=== PATIENT | female | born 1985 | race Hispanic/Latino ===

== ENCOUNTER 2019-09-21 19:48 | Emergency (ER) | payer OTHER ==
[2019-09-21 20:29] LABS: BASOPHILS % (AUTO) 0.2 % (0.0-5.0); EOSINOPHILS % (AUTO) 0.7 % (0.0-8.0); HEMATOCRIT 40.7 % (36-48); LYMPHOCYTES % (AUTO) 25.8 % (21.0-51.0); MEAN CORPUSCULAR HEMOGLOBIN 29.9 pg (27.0-33.0); MEAN CORPUSCULAR HGB CONC 33.2 g/dL (32.0-36.0); NEUTROPHILS % (AUTO) 68.1 % (40.0-77.0); PLATELET COUNT (AUTO) 270 K/uL (130-400); RED BLOOD CELL COUNT(AUTO) 4.52 MIL/uL (4.00-5.50); RED CELL DISTRIBUTION WIDTH 11.9 % (11.0-15.5); WHITE BLOOD COUNT (AUTO) 9.2 K/uL (4.8-10.8)
[2019-09-21 20:30] LABS: APPEARANCE,URINE Clear (CLEAR); BILIRUBIN,URINE Negative (NEGATIVE); COLOR,URINE Yellow (YELLOW); GLUCOSE, URINE (UA) Negative (NEGATIVE); KETONES,URINE 15 mg/dL (NEGATIVE); LEUKOCYTE ESTERASE ,URINE Negative (NEGATIVE); NITRATE,URINE Negative (NEGATIVE); OCCULT BLOOD,URINE Negative (NEGATIVE); PROTEIN,URINE Negative (NEGATIVE); UROBILINOGEN,URINE 0.2 mg/dL (0.2-1.0)
[2019-09-21 20:32] LABS: HCG,QUAL RESULT NEGATIVE (NEGATIVE)
[2019-09-21] MEDS ORDERED: ONDANSETRON ODT 4 MG TAB ONE (20:48)
[2019-09-21] MEDS ORDERED: ACETAMINOPHEN EXTRA STRENGTH 500 MG TABLET ONE (20:48)
[2019-09-21 21:05] LABS: CREATININE 0.6 mg/dL (0.5-1.5); POTASSIUM 3.3 mmol/L (3.5-5.1)
[2019-09-21 21:11] LABS: BILIRUBIN,TOTAL 0.8 mg/dL (0.2-1.0); TOTAL PROTEIN, SERUM 7.9 g/dL (6.0-8.3)
[2019-09-21] MEDS ORDERED: IBUPROFEN 800 MG TAB ONE (21:23)
== END 2019-09-21 21:53 | disposition home or self-care (01) ==
LOC: EDH 19:48
DX: M54.5 Low back pain (principal); R11.0 Nausea; Z98.890 Other specified postprocedural states
CPT/HCPCS: 36415; 80053; 81003; 81025; 85025

== ENCOUNTER 2020-06-22 10:56 | Emergency (ER) | payer OTHER ==
[2020-06-22] MEDS ORDERED: ACETAMINOPHEN EXTRA STRENGTH 500 MG TABLET ONE (15:10)
[2020-06-22] MEDS ORDERED: DEXAMETHASONE SOD PHOSPHATE 10MG/ML 1ML VIAL ONE (15:10)
[2020-06-22 16:11] LABS: RAPID GROUP A STREP NEGATIVE (NEGATIVE)
== END 2020-06-22 16:52 | disposition home or self-care (01) ==
LOC: EDH 10:56
DX: U07.1 COVID-19 (principal)
CPT/HCPCS: 87426; 87804 ×2; 87880; 96372; 99283; J1100

== ENCOUNTER 2020-09-25 03:30 | Inpatient (IN) | payer OTHER ==
[~2020-09-25] VITALS: Ht 160 cm; Wt 80.7 kg
[2020-09-25] MEDS ORDERED: ACETAMINOPHEN 325 MG TAB ONE (03:57)
[2020-09-25] MEDS ORDERED: ONDANSETRON HCL 4 MG/2 ML VIAL ONE ×2 (03:57→07:45)
[2020-09-25] MEDS ORDERED: METOCLOPRAMIDE 10 MG/2 ML VIAL ONE (03:57)
[2020-09-25] MEDS ORDERED: PANTOPRAZOLE 40 MG/VIAL ONE (03:57)
[2020-09-25] MEDS ORDERED: FAMOTIDINE/PF 20 MG/2 ML VIAL IV ONE (03:58)
[2020-09-25 03:59] LABS: BASOPHILS % (AUTO) 0.4 % (0.0-5.0); EOSINOPHILS % (AUTO) 0.6 % (0.0-8.0); HEMATOCRIT 42.2 % (36-48); LYMPHOCYTES % (AUTO) 21.7 % (21.0-51.0); MEAN CORPUSCULAR HEMOGLOBIN 29.7 pg (27.0-33.0); MEAN CORPUSCULAR HGB CONC 33.2 g/dL (32.0-36.0); MEAN CORPUSCULAR VOLUME 89.6 fL (79-99); MONOCYTES % (AUTO) 5.4 % (3.0-13.0); NEUTROPHILS % (AUTO) 71.6 % (40.0-77.0); PLATELET COUNT (AUTO) 229 K/uL (130-400); RED BLOOD CELL COUNT(AUTO) 4.71 MIL/uL (4.00-5.50); RED CELL DISTRIBUTION WIDTH 11.9 % (11.0-15.5); WHITE BLOOD COUNT (AUTO) 7.8 K/uL (4.8-10.8)
[2020-09-25 04:08] LABS: CREATININE 0.7 mg/dL (0.5-1.5); POTASSIUM 3.3 mmol/L (3.5-5.1)
[2020-09-25 04:11] LABS: INR 0.99 (0.85-1.15); PROTHROMBIN TIME 10.8 SEC (9.6-11.6)
[2020-09-25 04:12] LABS: ALBUMIN 4.1 g/dL (3.5-5.0); BILIRUBIN,TOTAL 1.1 mg/dL (0.2-1.0); TOTAL PROTEIN, SERUM 7.7 g/dL (6.0-8.3)
[2020-09-25 04:24] LABS: APPEARANCE,URINE Clear (CLEAR); BILIRUBIN,URINE Negative (NEGATIVE); COLOR,URINE Yellow (YELLOW); GLUCOSE, URINE (UA) Negative (NEGATIVE); KETONES,URINE Negative (NEGATIVE); LEUKOCYTE ESTERASE ,URINE Negative (NEGATIVE); NITRATE,URINE Negative (NEGATIVE); OCCULT BLOOD,URINE Trace (NEGATIVE); PROTEIN,URINE Negative (NEGATIVE); UROBILINOGEN,URINE 0.2 mg/dL (0.2-1.0)
[2020-09-25 04:28] LABS: HCG,QUAL RESULT NEGATIVE (NEGATIVE)
[2020-09-25 04:38] LABS: WBC,URINE 0-1 /HPF (0-1)
[2020-09-25 04:39] LABS: BACTERIA,URINE None Seen /HPF (None Seen)
[2020-09-25] MEDS ORDERED: ZOSYN 3.375GM+NS 50ML 50 ML IV ONE ×2 (05:55→15:31)
[2020-09-25] MEDS: ZOSYN 3.375GM+NS 50ML 50 ML IV SCH ×3 (06:45→22:21)
[2020-09-25] MEDS ORDERED: MORPHINE SULFATE 4 MG/1ML SYG IV PRN (06:45)
[2020-09-25] MEDS ORDERED: MORPHINE SULFATE 2 MG/ML 1ML SYG IVP PRN (06:45)
[2020-09-25] MEDS: SODIUM CHLORIDE 0.9% 1000ML 1,000 ML IV SCH ×3 (06:45→22:14)
[2020-09-25] MEDS ORDERED: POTASSIUM CHLORIDE 20MEQ/100ML 100 ML IV PRN (06:45)
[2020-09-25] MEDS ORDERED: LIDOCAINE HCL-MPF 1% 2ML VIAL IV PRN (06:45)
[2020-09-25] MEDS ORDERED: ACETAMINOPHEN 325 MG TAB PO PRN (06:45)
[2020-09-25] MEDS ORDERED: ONDANSETRON HCL 4 MG/2 ML VIAL IVP PRN (06:45)
[2020-09-25] MEDS ORDERED: MORPHINE SULFATE 2 MG/ML 1ML SYG ONE (07:44)
[2020-09-25] MEDS: FAMOTIDINE/PF 20 MG/2 ML VIAL IV SCH ×2 (09:00→22:14)
[2020-09-25] MEDS ORDERED: FAMOTIDINE 20MG TAB 20 MG TAB ONE (09:07)
[2020-09-25] MEDS ORDERED: DIATR MEGLU/DIATRIZOATE SODIUM 30 ML BOTTLE ONE (09:46)
[2020-09-25] MEDS ORDERED: IOHEXOL 350 MG/ML 100ML INFUS..BTL IV ONE (11:21)
[2020-09-25] MEDS ORDERED: POTASSIUM CHLORIDE 20MEQ/100ML 100 ML IV ONE (11:47)
[2020-09-25] MEDS ORDERED: LIDOCAINE HCL-MPF 1% 2ML VIAL ONE (11:48)
[2020-09-25] MEDS ORDERED: SODIUM CHLORIDE 0.9% 1000ML 1,000 ML IV ONE (17:36)
[2020-09-25 21:10] VITALS: BP 112/70
[2020-09-26] VITALS (18 sets, daily range): BP systolic 90–120; BP diastolic 47–75
[2020-09-26 05:10] LABS: BASOPHILS % (AUTO) 0.3 % (0.0-5.0); EOSINOPHILS % (AUTO) 1.9 % (0.0-8.0); HEMATOCRIT 37.1 % (36-48); LYMPHOCYTES % (AUTO) 34.6 % (21.0-51.0); MEAN CORPUSCULAR HEMOGLOBIN 30.2 pg (27.0-33.0); MEAN CORPUSCULAR HGB CONC 33.4 g/dL (32.0-36.0); MEAN CORPUSCULAR VOLUME 90.3 fL (79-99); MONOCYTES % (AUTO) 8.5 % (3.0-13.0); NEUTROPHILS % (AUTO) 54.4 % (40.0-77.0); PLATELET COUNT (AUTO) 201 K/uL (130-400); RED BLOOD CELL COUNT(AUTO) 4.11 MIL/uL (4.00-5.50); WHITE BLOOD COUNT (AUTO) 5.9 K/uL (4.8-10.8)
[2020-09-26 05:23] LABS: ALBUMIN 3.3 g/dL (3.5-5.0); BILIRUBIN,TOTAL 1.2 mg/dL (0.2-1.0); CREATININE 0.7 mg/dL (0.5-1.5); POTASSIUM 3.7 mmol/L (3.5-5.1); TOTAL PROTEIN, SERUM 6.3 g/dL (6.0-8.3)
[2020-09-26] MEDS: ZOSYN 3.375GM+NS 50ML 50 ML IV SCH (06:52)
[2020-09-26] MEDS: SODIUM CHLORIDE 0.9% 1000ML 1,000 ML IV SCH (06:52)
[2020-09-26] MEDS ORDERED: PROPOFOL 10 MG/ML 20ML VIAL IV ONE (08:10)
[2020-09-26] MEDS ORDERED: LIDOCAINE HCL-MPF 2% 5ML VIAL ONE (08:12)
[2020-09-26] MEDS ORDERED: PANTOPRAZOLE SODIUM 40 MG TABLET.DR PO SCH (09:15)
[2020-09-26] MEDS ORDERED: LEVO500T89 PO (11:14)
== END 2020-09-26 13:00 | disposition home or self-care (01) | DRG 392 ==
LOC: EDH 03:30 → EDHIP 06:34 → OBSVTOIN 06:34 → 3BH 20:35
PROVIDERS: ADMIT Hospitalist; ATTEND Hospitalist
PROC: 0DB68ZX Excision of Stomach, Via Natural or Artificial Opening Endoscopic, Diagnostic (ICD-10-PCS; principal; 2020-09-26)
PROC: 0DB78ZX Excision of Stomach, Pylorus, Via Natural or Artificial Opening Endoscopic, Diagnostic (ICD-10-PCS; 2020-09-26)
DX: A09 Infectious gastroenteritis and colitis, unspecified (principal); K62.5 Hemorrhage of anus and rectum; E87.6 Hypokalemia; K83.8 Other specified diseases of biliary tract; K44.9 Diaphragmatic hernia without obstruction or gangrene; K31.89 Other diseases of stomach and duodenum; Z20.822 Contact with and (suspected) exposure to COVID-19
CPT/HCPCS: 36415; 43239; 74178; 76705; 80053; 81001; 81025; 83605; 83690; 84145; 84484; 85025; 85610; 85730; 87040; 87426; 87804; 93005; C9113; G0378; J2405; J2543; J2704; J2765; J3480; J3490; J7030; Q9963; Q9967; U0003

== ENCOUNTER 2020-10-13 07:56 | Day surgery (SDC) | payer OTHER ==
[~2020-10-13] VITALS: Ht 160 cm; Wt 81.2 kg
[~2020-10-13 07:56] MED LIST: LEVO500T89 PO; SODIUM CHLORIDE 0.9% 1000ML 1,000 ML IV ONE
[2020-10-13 09:07] VITALS: BP 109/74
[2020-10-13] MEDS ORDERED: PROPOFOL 10 MG/ML 20ML VIAL IV ONE (09:30)
[2020-10-13] MEDS ORDERED: LIDOCAINE HCL 1% 20 ML VIAL ONE (09:30)
[2020-10-13 09:52] VITALS: BP 94/59
[2020-10-13 09:57] VITALS: BP 98/62
[2020-10-13 10:02] VITALS: BP 95/61
== END 2020-10-13 10:20 | disposition home or self-care (01) ==
LOC: DAH 07:56 → ENDO 07:56
PROVIDERS: ATTEND Internal Medicine Gastroenterology
DX: K92.1 Melena (principal); K62.89 Other specified diseases of anus and rectum; R93.3 Abnormal findings on diagnostic imaging of other parts of digestive tract; K62.1 Rectal polyp; Q43.8 Other specified congenital malformations of intestine; Z20.828 Contact with and (suspected) exposure to other viral communicable diseases; Z79.899 Other long term (current) drug therapy
CPT/HCPCS: 45380; 81025; A4215; A4221; A4222; A4223; A4606; A4620; A4663; C9803; J2704; J7030; U0003

== ENCOUNTER 2021-06-22 23:50 | Inpatient (IN) | payer OTHER, MEDICAID ==
[~2021-06-22] VITALS: Ht 160 cm; Wt 89.8 kg
[2021-06-23 00:30] LABS: APPEARANCE,URINE Clear (CLEAR); BILIRUBIN,URINE Negative (NEGATIVE); COLOR,URINE Yellow (YELLOW); GLUCOSE, URINE (UA) >=1000 mg/dL (NEGATIVE); KETONES,URINE 15 mg/dL (NEGATIVE); LEUKOCYTE ESTERASE ,URINE Trace (NEGATIVE); NITRATE,URINE Negative (NEGATIVE); OCCULT BLOOD,URINE Negative (NEGATIVE); PROTEIN,URINE Trace mg/dL (NEGATIVE)
[2021-06-23 00:43] LABS: BACTERIA,URINE Rare /HPF (None Seen); RBC,URINE None Seen /HPF (0-1); SQUAMOUS EPITHELIAL CELL,UR Few /HPF (0-2)
[2021-06-23 00:44] LABS: CALCIUM OXALATE CRYSTALS,UR Moderate /LPF (None Seen)
[2021-06-23] MEDS ORDERED: LACTATED RINGERS 1000ML 1,000 ML IV SCH (01:30)
[2021-06-23 01:43] VITALS: BP 118/71
[2021-06-23] MEDS ORDERED: PREN1TAB80 PO (01:46)
[2021-06-23] MEDS ORDERED: EPHEDRINE SULFATE 50 MG/ML AMPULE IVP PRN (08:00)
[2021-06-23] MEDS ORDERED: LACTATED RINGERS 500 ML 500 ML IV PRN (08:00)
[2021-06-23] MEDS ORDERED: NALOXONE HCL 0.4 MG/1 ML ML IV PRN (08:00)
[2021-06-23] MEDS ORDERED: AMPICILLIN 1GM+NS 50ML 50 ML IV SCH (08:00)
[2021-06-23] MEDS ORDERED: LACTATED RINGERS 1000ML 1,000 ML IV PRN (08:00)
[2021-06-23] MEDS ORDERED: OXYTOCIN-LR 20 UNITS/1000 ML 1,000 ML IV SCH ×2 (08:00)
[2021-06-23] MEDS ORDERED: AMPICILLIN 2GM+NS 100ML 100 ML IV SCH (08:00)
[2021-06-23 08:04] LABS: HEMATOCRIT 34.1 % (36-48); MEAN CORPUSCULAR HEMOGLOBIN 27.3 pg (27.0-33.0); MEAN CORPUSCULAR VOLUME 85.3 fL (79-99); RED CELL DISTRIBUTION WIDTH 14.2 % (11.0-15.5); WHITE BLOOD COUNT (AUTO) 8.7 K/uL (4.8-10.8)
[2021-06-23 13:28] LABS: RAPID PLASMA REAGIN NONREACTIVE (NONREACTIVE)
[2021-06-23] MEDS ORDERED: LANOLIN 30GM OINTMENT TP PRN (20:30)
[2021-06-23] MEDS ORDERED: BENZOCAINE/LANOLIN/ALOE VERA 60 ML AEROSOL TP PRN (20:30)
[2021-06-23] MEDS ORDERED: MEASLES/MUMPS/RUBELLA VACCINE, LIVE 0.5 ML/VIAL SQ PRN (20:30)
[2021-06-23] MEDS ORDERED: ACETAMINOPHEN WITH CODEINE 1 TAB TAB PO PRN (20:30)
[2021-06-23] MEDS ORDERED: ACETAMINOPHEN 325 MG TAB PO PRN (20:30)
[2021-06-23] MEDS ORDERED: WITCH HAZEL 1 PAD TP PRN (20:30)
[2021-06-23] MEDS ORDERED: DIPH,PERTUSS(ACELL),TET VAC/PF 0.5 ML VIAL IM PRN (20:30)
[2021-06-23] MEDS: DOCUSATE SODIUM 100 MG CAP PO SCH (20:42)
[2021-06-23 22:37] VITALS: BP 113/53
[2021-06-23] MEDS: IBUPROFEN 600 MG TABLET PO PRN (23:52)
[2021-06-24 03:25] VITALS: BP 97/60
[2021-06-24 07:26] VITALS: BP 97/63
[2021-06-24] MEDS: DOCUSATE SODIUM 100 MG CAP PO SCH (09:30)
[2021-06-24] MEDS: IBUPROFEN 600 MG TABLET PO PRN (09:31)
[2021-06-24 11:22] VITALS: BP 89/51
[2021-06-24 16:23] VITALS: BP 97/57
[2021-06-24 19:20] VITALS: BP 104/70
== END 2021-06-24 20:25 | disposition home or self-care (01) | DRG 807 ==
LOC: EDH 23:50 → INTOOBSV 23:58 → LDH 23:58 → OBSVTOIN 23:58 → WSH 06-23 22:28
PROVIDERS: ADMIT Specialist; ATTEND Specialist
PROC: 10E0XZZ Delivery of Products of Conception, External Approach (ICD-10-PCS; principal; 2021-06-23)
PROC: 10E0XZZ Delivery of Products of Conception, External Approach (ICD-10-PCS; 2021-06-23)
DX: O80 Encounter for full-term uncomplicated delivery (principal); Z37.0 Single live birth; Z3A.37 37 weeks gestation of pregnancy
CPT/HCPCS: 36415; 81001; 85027; 86592; 86701; 86850; 86900; 86901; 87340; 87390; 90707; 90715; 96360; 96361; A4314; G0378; J2590; J7120

== ENCOUNTER 2021-09-03 07:10 | Day surgery (SDC) | payer OTHER, MEDICAID ==
[2021-08-30 11:30] VITALS: BP 124/77
[2021-08-30 11:45] LABS: BASOPHILS % (AUTO) 0.2 % (0.0-5.0); EOSINOPHILS % (AUTO) 0.8 % (0.0-8.0); HEMATOCRIT 40.1 % (36-48); LYMPHOCYTES % (AUTO) 21.3 % (21.0-51.0); MEAN CORPUSCULAR HEMOGLOBIN 27.5 pg (27.0-33.0); MEAN CORPUSCULAR HGB CONC 31.2 g/dL (32.0-36.0); MEAN CORPUSCULAR VOLUME 88.1 fL (79-99); MONOCYTES % (AUTO) 7.2 % (3.0-13.0); NEUTROPHILS % (AUTO) 70.3 % (40.0-77.0); PLATELET COUNT (AUTO) 221 K/uL (130-400); RED BLOOD CELL COUNT(AUTO) 4.55 MIL/uL (4.00-5.50); RED CELL DISTRIBUTION WIDTH 14.9 % (11.0-15.5); WHITE BLOOD COUNT (AUTO) 9.3 K/uL (4.8-10.8)
[2021-09-03] VITALS (16 sets, daily range): BP systolic 108–126; BP diastolic 71–83
[~2021-09-03] VITALS: Ht 157.5 cm; Wt 84.1 kg
[~2021-09-03 07:10] MED LIST changes: -LEVO500T89 PO; +PREN1TAB80 PO; -SODIUM CHLORIDE 0.9% 1000ML 1,000 ML IV ONE
[2021-09-03] MEDS ORDERED: CEFAZOLIN SODIUM 1 GM VIAL ONE (07:19)
[2021-09-03] MEDS ORDERED: LACTATED RINGERS 1000ML 1,000 ML IV ONE (07:19)
[2021-09-03] MEDS ORDERED: ONDANSETRON 4MG INJ ONE (07:35)
[2021-09-03] MEDS ORDERED: LIDOCAINE PF 100MG/5ML (2%) SYRINGE 5ML ONE (07:35)
[2021-09-03] MEDS ORDERED: FENTANYL CITRATE PF 50 MCG/1 ML 2ML VIAL ONE ×2 (07:35→08:16)
[2021-09-03] MEDS ORDERED: MIDAZOLAM HCL 1 MG/ML 2ML VIAL ONE (07:35)
[2021-09-03] MEDS ORDERED: ROCURONIUM 10MG/1ML SYR 10 MG/ML ML ONE (07:35)
[2021-09-03] MEDS ORDERED: PROPOFOL 10 MG/ML 20ML VIAL IV ONE (07:35)
[2021-09-03] MEDS ORDERED: MEPERIDINE-PF 25 MG/ML SYG ONE ×2 (08:56→09:04)
== END 2021-09-03 12:30 | disposition home or self-care (01) ==
LOC: DAH 07:10
PROVIDERS: ATTEND Specialist
DX: Z30.2 Encounter for sterilization (principal); Z20.822 Contact with and (suspected) exposure to COVID-19; Z79.899 Other long term (current) drug therapy
CPT/HCPCS: 36415 ×2; 58671; 84703; 85025; 86850 ×2; 86900 ×2; 86901 ×2; 87635; A4215 ×2; A4221; A4222; A4223; A4351; A4663; A6260; C1769 ×3; C9803; J2001; J2175 ×2; J2250; J2405; J2704; J3010 ×2; J7030; J7120; J0690

== ENCOUNTER → 2022-01-31 | Outpatient (CLI) | payer MEDICAID, OTHER | END | disposition home or self-care (01) | LOC: RAH 07:47 | PROVIDERS: ATTEND Internal Medicine Cardiovascular Disease | DX: K76.0 Fatty (change of) liver, not elsewhere classified (principal); R74.01 Elevation of levels of liver transaminase levels; K76.89 Other specified diseases of liver | CPT/HCPCS: 76700 ==